=== PATIENT | male | born 1955 | race Caucasian/White ===

== ENCOUNTER → 2017-12-27 | Outpatient (CLI) | payer OTHER ==
[~2017-12-27] MED LIST: CYCL10 PO; IBUP800 PO; LEVSOD75; OXYACE5T PO; Omeprazole20 M1; SYNTHROID112 MCG PO
== END ==
LOC: LAB SHORT 13:32 → PLD 13:32
DX: D22.5 Melanocytic nevi of trunk (principal)
CPT/HCPCS: 88305

== ENCOUNTER 2020-01-01 06:07 | Day surgery (SDC) | payer OTHER ==
[~2020-01-01] VITALS: Ht 180.3 cm; Wt 76.6 kg
[~2020-01-01 06:07] MED LIST changes: +FAMO40 PO; +Flonase 0.05% N16 GM; +IBUP200 PO
--- NOTE | 2020-01-01 07:26 | NUR ---
History, Chart, Medications and Allergies reviewed before start of procedure.Patient confirms NPO status and agrees with scheduled surgery. Patient reports completing Chlorhexadine shower X2 prior to admission to hospital.Surgical site prepped with 2% Chlorhexidine cloth wipe. STUDENT RN CHASTITY ASSISTING IN CARE. AGREE WITH HIS CARE AND CHARTING
--- NOTE | 2020-01-01 11:40 | NUR ---
DISCHARGE Patient up to Ambulate independently. Gait steady. Discharge instructions reviewed with patient. Patient verbalizes understanding. Copy given to patient to take home. Dressing to procedure site clean, dry, intact with no visible drainage, swelling, erythema or bruising noted. JILLIAN DRAIN IN PLACE PT INSTRUCTED AND SHOWN ON DRAINAGE AND CARE 25CC DRAINED FROM Patient States Post-Procedure ride home has been arranged. Discharged via wheelchair to private car for ride home.
--- NOTE | 2020-01-01 11:53 | NUR ---
JEREMIAS SIFUENTES INSTRUCTED ON JILLIAN DRAIN AND CARE AND SHOWN HOW TO EMPTY DRAIN JEREMIAS VERBALZED UNDERSTANDING
== END 2020-01-01 23:13 | disposition home or self-care (01) ==
LOC: ORSCMMR 06:07 → ORD 07:30 → ORSCMMR 07:30
PROVIDERS: Surgery
PROC: 0FT44ZZ Resection of Gallbladder, Percutaneous Endoscopic Approach (ICD-10-PCS; principal; 2020-01-01 07:30)
PROC: BF031ZZ Plain Radiography of Gallbladder and Bile Ducts using Low Osmolar Contrast (ICD-10-PCS; principal; 2020-01-01 07:30)
DX: K80.10 Calculus of gallbladder with chronic cholecystitis without obstruction (principal); K42.9 Umbilical hernia without obstruction or gangrene; K21.9 Gastro-esophageal reflux disease without esophagitis; Z87.891 Personal history of nicotine dependence; Z79.899 Other long term (current) drug therapy
CPT/HCPCS: 74300; 88304; A9270-GY; C1729; J0690; J1100; J1885; J2250; J2405; J2704; J3010; J7120

== ENCOUNTER → 2020-06-17 | Outpatient (CLI) | payer OTHER | END | disposition home or self-care (01) | LOC: PLD 12:52 → LAB SHORT 12:52 | DX: L57.0 Actinic keratosis (principal) | CPT/HCPCS: 88305 ==